=== PATIENT | male | born 1950 | race Caucasian/White ===

== ENCOUNTER 2017-01-06 16:42 | Inpatient (IN) | payer OTHER ==
[~2017-01-06] VITALS: Ht 162.6 cm; Wt 111.9 kg
--- NOTE | ~2017-01-06 | EKG ---
[address] [address] ELECTROCARDIOGRAM REPORT Name: CHAYO SUMMERSY Velma Room #: 205-[facility] [place] M.R.#: [id number] Admission: 01/06/17 Attend Phys: Homero Cannon MD Discharge: Date of : 52 Report #: [id number] THIS REPORT FOR: //name// [facility] Test Date: 2017-01-08 Test Time: 13:50:03 Pat Name: RAIZA SUMMERS Department: Room: 205 Gender: M Lead Teller: Blair RYAN : 1950 Requested By: Homero Cannon Order Number: [id number] MD: Prince Murillo Measurements Intervals [place] Rate: 115 P: 21 VA: 154 QRS: 66 QRSD: 88 T: 48 QT: 288 QTc: 399 Interpretive Statements Sinus tachycardia Abnormal R-wave progression, late transition Marked artifact limits assessment of ST and T-wave segments No previous ECG available for comparison Electronically Signed On 01-09-2017 10:44:18 CDT by Prince Murillo [email or web address] <ELECTRONICALLY SIGNED> By: Prince Murillo MD, [facility] 01/09/17 1044 1350 1350 Prince Murillo MD, [facility] /EPI
[2017-01-06 18:02] VITALS: BP 161/73
[2017-01-06 18:46] LABS: HEMATOCRIT 39.3 % (42.0-52.0); MCH 30.4 pg (26.0-34.0); MCHC 33.2 g/dL (28.0-37.0); MCV 91.6 fL (80.0-100.0); RBC 4.29 mil/uL (4.50-6.00); RDW 14.9 % (10.5-14.5); WBC 13.7 thou/uL (4.0-11.0)
[2017-01-06 18:55] LABS: CALCIUM 8.7 mg/dL (8.5-10.1); CREATININE 1.2 mg/dL (0.7-1.3)
[2017-01-06 19:01] LABS: ALBUMIN 2.7 g/dL (3.4-5.0); TOTAL BILIRUBIN 1.6 mg/dL (<0.1-1.0)
[2017-01-06] MEDS ORDERED: ANDROGEL TOP (19:37)
[2017-01-06 19:38] VITALS: BP 105/57
[2017-01-06] MEDS ORDERED: CARDURA4 MG PO (19:38)
[2017-01-06] MEDS ORDERED: LISINOPRIL10 MG PO (19:39)
[2017-01-06] MEDS ORDERED: PROTONIX40 M1 PO (19:40)
[2017-01-06 23:52] VITALS: BP 134/73
[2017-01-07 03:51] LABS: HEMATOCRIT 37.2 % (42.0-52.0); HEMOGLOBIN 12.4 gm/dL (14.0-18.0); MCH 30.5 pg (26.0-34.0); MCHC 33.2 g/dL (28.0-37.0); MCV 91.7 fL (80.0-100.0); PLATELET COUNT 220 thou/uL (150-400); RBC 4.06 mil/uL (4.50-6.00); RDW 14.5 % (10.5-14.5); WBC 12.5 thou/uL (4.0-11.0)
[2017-01-07 03:52] LABS: MANUAL DIFF YES
[2017-01-07 04:03] LABS: ALBUMIN 2.5 g/dL (3.4-5.0); CALCIUM 8.1 mg/dL (8.5-10.1); CREATININE 1.1 mg/dL (0.7-1.3); POTASSIUM 3.8 mmol/L (3.5-5.1); TOTAL BILIRUBIN 1.3 mg/dL (<0.1-1.0); TOTAL PROTEIN 6.6 g/dL (6.4-8.2)
[2017-01-07 05:12] LABS: ABSOLUTE NEUTROPHILS 10.1 thou/uL (1.4-8.2); LARGE PLATELETS FEW; TOTAL CELL COUNT 100
[2017-01-07 05:32] VITALS: BP 136/68
[2017-01-07 09:08] VITALS: BP 158/65
[2017-01-07 17:21] VITALS: BP 125/58; BP 157/68
[2017-01-07 20:40] VITALS: BP 136/59
[2017-01-08 05:00] VITALS: BP 138/50
[2017-01-08 05:04] LABS: ABSOLUTE NEUTROPHILS 7.8 thou/uL (1.4-8.2); BASOPHILS 0.3 % (0.0-2.0); EOSINOPHILS 1.3 % (0.0-3.0); HEMATOCRIT 37.1 % (42.0-52.0); LYMPHOCYTES 10.4 % (24.0-44.0); MCH 30.4 pg (26.0-34.0); MCHC 32.4 g/dL (28.0-37.0); MCV 93.8 fL (80.0-100.0); MONOCYTES 8.8 % (1.0-8.0); PLATELET COUNT 226 thou/uL (150-400); POLYS 79.2 % (36.0-66.0); RBC 3.95 mil/uL (4.50-6.00); RDW 14.9 % (10.5-14.5); WBC 9.9 thou/uL (4.0-11.0)
[2017-01-08 05:08] LABS: MANUAL DIFF NO
[2017-01-08 05:11] LABS: PROTIME 10.2 Seconds (9.3-11.4)
[2017-01-08 05:27] LABS: ALBUMIN 2.3 g/dL (3.4-5.0); CALCIUM 8.3 mg/dL (8.5-10.1); CREATININE 1.1 mg/dL (0.7-1.3); POTASSIUM 3.8 mmol/L (3.5-5.1); TOTAL PROTEIN 6.5 g/dL (6.4-8.2)
[2017-01-08 07:31] VITALS: BP 138/50
[2017-01-08 08:27] VITALS: BP 133/58
[2017-01-08 14:12] LABS: ABG SAMPLE TYPE ARTERIAL; BE(vivo) -1.6 mmol/L (-2 to +3); HCO3 21.6 mmol/L (22.0-26.0); LACTATE 2.06 mmol/L (0.5-2.0); O2(CT) 15.6 mL/dL (15.0-23.0); PCO2 32.3 mmHg (35.0-45.0); PO2 42.9 mmHg (80.0-100.0); STICK SITE L.RADIAL; pH 7.443 (7.360-7.450); sO2 81.3 % (92.0-98.0); tCO2 22.6 mmol/L (24.0-30.0)
[2017-01-08 15:17] VITALS: BP 159/84
[2017-01-08 20:49] VITALS: BP 105/62
[2017-01-08 23:30] VITALS: BP 102/47
[2017-01-09 04:46] VITALS: BP 104/56
[2017-01-09 04:53] LABS: HEMATOCRIT 35.2 % (42.0-52.0); HEMOGLOBIN 11.5 gm/dL (14.0-18.0); MCH 30.2 pg (26.0-34.0); MCHC 32.6 g/dL (28.0-37.0); MCV 92.6 fL (80.0-100.0); PLATELET COUNT 218 thou/uL (150-400); RDW 14.8 % (10.5-14.5); WBC 11.8 thou/uL (4.0-11.0)
[2017-01-09 04:55] LABS: MANUAL DIFF YES
[2017-01-09 05:06] LABS: ALBUMIN 2.3 g/dL (3.4-5.0); DIRECT BILIRUBIN 0.9 mg/dL (<0.1-0.3); TOTAL BILIRUBIN 1.5 mg/dL (<0.1-1.0); TOTAL PROTEIN 6.3 g/dL (6.4-8.2)
[2017-01-09 05:07] LABS: ALBUMIN 2.3 g/dL (3.4-5.0); CALCIUM 8.1 mg/dL (8.5-10.1); CREATININE 1.4 mg/dL (0.7-1.3); POTASSIUM 3.5 mmol/L (3.5-5.1); TOTAL BILIRUBIN 1.4 mg/dL (<0.1-1.0); TOTAL PROTEIN 6.3 g/dL (6.4-8.2)
[2017-01-09 05:22] LABS: ABSOLUTE NEUTROPHILS 10.4 thou/uL (1.4-8.2); ANISOCYTOSIS SLIGHT; TOTAL CELL COUNT 100
[2017-01-09 07:41] VITALS: BP 116/66
[2017-01-09 08:00] VITALS: BP 151/67
[2017-01-09 11:30] VITALS: BP 151/67
[2017-01-09 16:45] VITALS: BP 145/70
[2017-01-09 19:37] VITALS: BP 152/85
[2017-01-10 04:02] VITALS: BP 155/79
[2017-01-10 08:04] VITALS: BP 141/79
[2017-01-10 09:10] LABS: HEMATOCRIT 35.7 % (42.0-52.0); HEMOGLOBIN 11.8 gm/dL (14.0-18.0); MCH 30.4 pg (26.0-34.0); MCHC 33.1 g/dL (28.0-37.0); PLATELET COUNT 219 thou/uL (150-400); RBC 3.88 mil/uL (4.50-6.00); RDW 14.7 % (10.5-14.5); WBC 8.7 thou/uL (4.0-11.0)
[2017-01-10 09:12] LABS: MANUAL DIFF YES
[2017-01-10 09:18] LABS: CALCIUM 8.3 mg/dL (8.5-10.1); CREATININE 1.1 mg/dL (0.7-1.3); POTASSIUM 3.5 mmol/L (3.5-5.1)
[2017-01-10 10:01] LABS: ABSOLUTE NEUTROPHILS 7.6 thou/uL (1.4-8.2); PLATELET ESTIMATE NORMAL; TOTAL CELL COUNT 100
[2017-01-10 11:31] VITALS: BP 133/70
[2017-01-10 16:57] VITALS: BP 165/78
[2017-01-10 19:52] VITALS: BP 152/81
[2017-01-10 23:04] VITALS: BP 157/78
[2017-01-11 02:55] VITALS: BP 133/65
[2017-01-11 03:36] LABS: HEMATOCRIT 34.5 % (42.0-52.0); HEMOGLOBIN 11.5 gm/dL (14.0-18.0); MCH 30.5 pg (26.0-34.0); MCHC 33.3 g/dL (28.0-37.0); MCV 91.6 fL (80.0-100.0); RBC 3.76 mil/uL (4.50-6.00); RDW 14.7 % (10.5-14.5); WBC 7.4 thou/uL (4.0-11.0)
[2017-01-11 03:50] LABS: CALCIUM 8.2 mg/dL (8.5-10.1); POTASSIUM 3.6 mmol/L (3.5-5.1)
[2017-01-11 07:45] VITALS: BP 144/71
[2017-01-11] MEDS ORDERED: HYDROCODONE-AP1 EAC6 PO (12:52)
[2017-01-11 12:53] VITALS: BP 144/71
[2017-01-11 13:02] VITALS: BP 144/71
[2017-01-11] MEDS ORDERED: FLAGYL500 MG PO (15:09)
[2017-01-11] MEDS ORDERED: CIPRO500 MG PO (15:09)
== END 2017-01-11 15:40 | disposition home or self-care (01) | DRG 444 ==
LOC: 4N 16:42 → 2N 17:35 → 4N 17:35 → 2N 01-08 15:16
PROVIDERS: Hospitalist; Internal Medicine; Nurse Practitioner Acute Care; Surgery
PROC: 0F9430Z Drainage of Gallbladder with Drainage Device, Percutaneous Approach (ICD-10-PCS; principal; 2017-01-08)
DX: K80.00 Calculus of gallbladder with acute cholecystitis without obstruction (principal); G92 Toxic encephalopathy; J96.01 Acute respiratory failure with hypoxia; N17.9 Acute kidney failure, unspecified; I10 Essential (primary) hypertension; K21.9 Gastro-esophageal reflux disease without esophagitis; M19.90 Unspecified osteoarthritis, unspecified site; T41.45XA Adverse effect of unspecified anesthetic, initial encounter; N40.0 Benign prostatic hyperplasia without lower urinary tract symptoms; Z79.899 Other long term (current) drug therapy; Z88.8 Allergy status to other drugs, medicaments and biological substances; Y92.89 Other specified places as the place of occurrence of the external cause; Z87.01 Personal history of pneumonia (recurrent); Z85.841 Personal history of malignant neoplasm of brain
CPT/HCPCS: 10790; 10797